=== PATIENT | female | born 1995 | race Caucasian/White ===

== ENCOUNTER 2016-12-14 16:12 | Emergency (ER) ==
[2016-12-14 16:21] VITALS: BP 113/74; TEMP 98.8; BMI 29.0
[2016-12-14] MEDS ORDERED: SOLU-MEDROL 125 MG IM STA (16:39)
--- NOTE | 2016-12-14 16:42 | ED.PDOC ---
General ED Provider: Dr. CARLOS DASILVA Chief Complaint: Bite Stated Complaint: Patient is a 21 year old female who comes to the Er with left neck swellig up to the ear with ear pain. Has pain full swallowing. Started after she got stung by a wasp. was unable to use her Epipen. Took bendryl x 1 due to breast feeding. Time Seen by Physician: 16:39 Mode of Arrival: Walk-In Information Source: Patient Exam Limitations: No limitations Primary Care Provider: MARQUISE BABCOCK Nursing and Triage Documentation Reviewed and Agree: Yes Skin Complaint Exam - Skin/Soft Tissue Complaint/Exam Onset/Duration: 1 day Symptoms Are: Still present Timing: Constant Initial Severity: Severe Current Severity: Moderate Location: Left neck Character: Reports: Swelling, Painful Aggravating: Reports: Touch Alleviating: Reports: None Associated Signs and Symptoms: Reports: Tenderness. Denies: Fever, Chills, Itching, Drainage, Bruising Related History: Reports: Insect bite/sting Related Surgical History: Reports: None Recent Exposure to Others w/Similar Symptoms: Yes Skin Findings: Present: Other (left neck swelling an area measuring 10 cm. No stridor. Thorat is clear ) Joint Tenderness Present: No Differential Diagnoses: Lymphadenitis Review of Systems - Review Of Systems Constitutional: Reports: No symptoms Eyes: Reports: No symptoms Ears, Nose, Mouth, Throat: Reports: Throat pain, Throat swelling (on the left, No difficuly breathing. ) Respiratory: Reports: No symptoms Cardiac: Reports: No symptoms GI: Reports: No symptoms : Reports: No symptoms Musculoskeletal: Reports: No symptoms Skin: Reports: No symptoms Neurological: Reports: No symptoms Endocrine: Reports: No symptoms Hematologic/Lymphatic: Reports: No symptoms All Other Systems: Reviewed and Negative Past Medical History - Past Medical History Previously Healthy: Yes Endocrine: Reports: None Cardiovascular: Reports: None Respiratory: Reports: None Hematological: Reports: None Gastrointestinal: Reports: None Genitourinary: Reports: None Neuro/Psych: Reports: None Musculoskeletal: Reports: None Cancer: Reports: None Last Menstrual Period: now - Surgical History General Surgical History: Reports: Cholecystectomy, Orthopedic (Right knee ), Other (Tube in ear ) - Family History Family History: Reports: None - Social History Smoking Status: Never smoker Hx Substance Use: No Alcohol Screening: None Physical Exam - Physical Exam Appearance: Well-appearing, Ill-appearing, Well-nourished Ill-appearing: Mild Pain Distress: Moderate Eyes: LASHAY, EOMI, Conjunctiva clear ENT: Ears normal, Nose normal, Oropharynx normal Neck: Nonsupple Respiratory: Airway patent, Breath sounds clear, Breath sounds equal, Respirations nonlabored Cardiovascular: RRR, Pulses normal, No rub, No murmur GI/: Soft, Nontender, No masses, Bowel sounds normal, No Organomegaly Musculoskeletal: Normal strength, ROM intact, No edema, No calf tenderness Skin: Warm, Dry, Normal color Neurological: Sensation intact, Motor intact, Reflexes intact, Cranial nerves intact, Alert, Oriented Psychiatric: Anxious Critical Care Note - Critical Care Note Total Time (mins): 0 Course - Course Orders, Labs, Meds: Orders Category Date Time Status Methylprednisolone Sod Succ/Pf [Solu-Medrol 125 mg] MEDS 12/14/16 16:39 Stat 125 mg IM ONCE STA Vital Signs: Temp Pulse Resp BP Pulse Ox 12/14/16 16:13 98.8 F 85 20 113/74 98 Departure - Departure Time of Disposition: 16:59 Disposition: HOME SELF-CARE Discharge Problem: Wasp sting Qualifiers: Encounter type: initial encounter Injury intent: accidental or unintentional Qualifier Code: (T63.461A) Toxic effect of venom of wasps, accidental ( unintentional), initial encounter Instructions: Insect Bite or Sting (ED) Condition: Fair Pt referred to PMD for follow-up: Yes Additional Instructions: Take medication as prescribed, Breast feed after 4 hours of taking the medications. Return if worse. Prescriptions: Epinephrine [Epipen Twinpak] 0.3 mg IM PRN PRN #1 [email or web address] PRN Reason: Bee sting Methylprednisolone [Medrol Dosepak] 4 mg PO DIRECTED #1 pkg Allergies/Adverse Reactions: Allergies No Known Allergies Allergy (Unverified 12/14/16 16:21) Home Medications: Ambulatory Orders Epinephrine [Epipen 2-Steve] 0.3 mg IM DIRECTED PRN 12/14/16 Epinephrine [Epipen Twinpak] 0.3 mg IM PRN PRN #1 [email or web address] 12/14/16 Methylprednisolone [Medrol Dosepak] 4 mg PO DIRECTED #1 pkg 12/14/16 Disposition Discussed With: Patient
== END 2016-12-14 17:05 | disposition home or self-care (01) ==
LOC: ED 16:12
DX: T63.461A Toxic effect of venom of wasps, accidental (unintentional), initial encounter (principal); R22.1 Localized swelling, mass and lump, neck
CPT/HCPCS: 96372; 99282